=== PATIENT | female | born 1985 | race Caucasian/White ===

== ENCOUNTER 2023-10-30 17:52 | Inpatient (IN) | payer OTHER ==
[2023-10-30 18:47] VITALS: BMI 34.7
[2023-10-30] MEDS ORDERED: IBUPROFEN 400 MG TABLET (FP) PO PRN (19:12)
[2023-10-30] MEDS ORDERED: POLYETHYLENE GLYCOL (HEALTHYLAX) 3350 17 GM PACKET PO PRN (19:12)
[2023-10-30] MEDS ORDERED: chlordiazePOXIDE HCL 25 MG CAPSULE PO PRN (19:12)
[2023-10-30] MEDS ORDERED: LOPERAMIDE HCL 2 MG CAPSULE PO PRN (19:12)
[2023-10-30] MEDS ORDERED: NALOXONE HCL (KLOXXADO) 8 MG SPRAY NS PRN (19:12)
[2023-10-30] MEDS ORDERED: BENZONATATE 200 MG CAPSULE PO PRN (19:12)
[2023-10-30] MEDS ORDERED: NALOXONE HCL 0.4 MG/ML VIAL IM PRN (19:12)
[2023-10-30] MEDS ORDERED: BENZOCAINE/MENTHOL (CHLORASEPTIC ) LOZENGE MM PRN (19:12)
[2023-10-30] MEDS ORDERED: IBUPROFEN 600 MG TABLET (FP) PO PRN (19:12)
[2023-10-30] MEDS ORDERED: ACETAMINOPHEN 325 MG TABLET (FP) PO PRN (19:12)
[2023-10-30] MEDS ORDERED: guaiFENesin 600 MG TABLET.ER (FP) PO PRN (19:12)
[2023-10-30] MEDS ORDERED: MAG HYDROX/AL HYDROX/SIMETH 30 ML UNIT-DOSE CUP PO PRN (19:12)
[2023-10-30] MEDS ORDERED: BISMUTH SUBSALICYLATE 524 MG/30 ML PO PRN (19:12)
[2023-10-30] MEDS ORDERED: MAGNESIUM HYDROX 2400MG/30ML ORAL SUSPENSION 30 ML CUP PO PRN (19:12)
[2023-10-30] MEDS ORDERED: ONDANSETRON *ODT* 4 MG TABLET ONE (20:02)
[2023-10-30] MEDS: ONDANSETRON *ODT* 4 MG TABLET SL PRN (20:04)
[2023-10-30] MEDS: chlordiazePOXIDE HCL 25 MG CAPSULE PO SCH (22:21)
[2023-10-30] MEDS: hydrOXYzine PAMOATE 25 MG CAPSULE (FP) PO PRN (22:22)
[2023-10-30] MEDS: MELATONIN 5 MG TABLETS PO SCH (22:22)
[2023-10-30] MEDS: THIAMINE 100 MG TABLET PO SCH (22:22)
[2023-10-30] MEDS: METHOCARBAMOL 500 MG TABLET PO PRN (22:22)
[2023-10-31] MEDS: DICYCLOMINE HCL 10 MG CAPSULE PO PRN (00:55)
[2023-10-31] MEDS: PRENATAL VITAMINS W/ FOLIC ACID TABLET (FP) PO SCH (10:05)
[2023-10-31] MEDS: PANTOPRAZOLE 20 MG TABLET PO SCH (10:05)
[2023-10-31] MEDS: TRIMETHOBENZAMIDE HCL 200MG/2ML INJ IM ONE (10:50)
[2023-10-31] MEDS: FLUoxetine HCL 20 MG CAPSULE PO SCH (11:56)
[2023-10-31] MEDS: QUEtiapine FUMARATE 100 MG TABLET (FP) PO SCH (11:56)
[2023-10-31 12:26] LABS: HEMATOCRIT 33.2 % (32.4-45.2); MCH 32.4 pg (25.7-33.7); MCHC 33.2 g/dl (32.0-36.0); MEAN CELL VOLUME 97.8 fl (80-96); MEAN PLT VOLUME 8.4 fl (7.5-11.1); PLATELET COUNT 78 10^3/uL (134-434); RBC 3.39 M/mm3 (3.60-5.2); WHITE BLOOD COUNT 3.4 K/mm3 (4.0-10.0)
[2023-10-31 12:53] LABS: CHLORIDE 98 mmol/L (98-107); SODIUM 137 mmol/L (136-145)
[2023-10-31 13:03] LABS: BILIRUBIN,TOTAL 2.1 mg/dL (0.2-1); BLOOD UREA NITROGEN 3.7 mg/dL (7-18)
[2023-10-31 13:04] LABS: ALBUMIN 3.2 g/dl (3.4-5.0); ALK PHOS 220 U/L (45-117); CALCIUM 8.1 mg/dL (8.5-10.1); CO2 30 mmol/L (21-32); CREATININE 0.6 mg/dL (0.55-1.3); GLUCOSE,RANDOM 78 mg/dL (74-106); SGPT/ALT 158 U/L (13-61); TOT PROT 6.7 g/dl (6.4-8.2)
[2023-10-31 13:06] LABS: SGOT/AST 328 U/L (15-37)
[2023-10-31 13:12] LABS: ANION GAP 9 mmol/L (4-13); POTASSIUM 2.8 mmol/L (3.5-5.1)
[2023-10-31] MEDS: GABAPENTIN 100 MG CAPSULE PO SCH (13:23)
[2023-10-31 14:02] LABS: HIV INTERPRETATION NEGATIVE (NEGATIVE)
[2023-10-31] MEDS: POTASSIUM CHLORIDE ORAL LIQUID 20 MEQ/15 ML PO ONE (15:10)
[2023-11-01] MEDS: chlordiazePOXIDE HCL 25 MG CAPSULE PO SCH (05:39)
[2023-11-01 15:12] LABS: POTASSIUM 2.8 mmol/L (3.5-5.1)
[2023-11-02] MEDS ORDERED: chlordiazePOXIDE HCL 10 MG CAPSULE PO PRN
[2023-11-02] MEDS: chlordiazePOXIDE HCL 10 MG CAPSULE PO SCH (05:47)
[2023-11-02] MEDS ORDERED: LORazepam 1 MG TABLET PO PRN (09:03)
[2023-11-02] MEDS: LORazepam 1 MG TABLET PO SCH (10:17)
[2023-11-02] MEDS ORDERED: NALTREXONE HCL 50 MG TABLET PO SCH (15:30)
[2023-11-02] MEDS: NALTREXONE HCL 50 MG TABLET PO SCH (17:25)
[2023-11-02] MEDS: POTASSIUM CHLORIDE ORAL LIQUID 20 MEQ/15 ML PO SCH (17:54)
[2023-11-03] MEDS ORDERED: chlordiazePOXIDE HCL 10 MG CAPSULE PO SCH (05:00)
[2023-11-03] MEDS: LORazepam 0.5 MG TABLET PO SCH (05:04)
[2023-11-03 07:33] VITALS: RESP 16
[2023-11-03 09:53] VITALS: BP 142/86; PULSE 65; TEMP 97.6
[2023-11-04] MEDS ORDERED: chlordiazePOXIDE HCL 10 MG CAPSULE PO ONE (05:00)
[2023-11-04] MEDS ORDERED: LORazepam 0.5 MG TABLET PO ONE (05:00)
== END 2023-11-03 13:07 | disposition home or self-care (01) | DRG 775 ==
LOC: YASAS 17:52 → Y6N 20:16
PROVIDERS: ADMIT Allergy & Immunology; ATTEND Surgery
PROC: HZ2ZZZZ Detoxification Services for Substance Abuse Treatment (ICD-10-PCS; principal; 2023-10-30)
DX: F10.230 Alcohol dependence with withdrawal, uncomplicated (principal); F12.20 Cannabis dependence, uncomplicated; F17.210 Nicotine dependence, cigarettes, uncomplicated; F25.0 Schizoaffective disorder, bipolar type; F41.9 Anxiety disorder, unspecified; F31.9 Bipolar disorder, unspecified; K21.9 Gastro-esophageal reflux disease without esophagitis; E87.6 Hypokalemia; E87.8 Other disorders of electrolyte and fluid balance, not elsewhere classified; D64.9 Anemia, unspecified; D68.311 Acquired hemophilia; J45.909 Unspecified asthma, uncomplicated; D68.00 Von Willebrand disease, unspecified; Z98.84 Bariatric surgery status; Z88.6 Allergy status to analgesic agent
CPT/HCPCS: 36415; 80053; 80305; 80307; 81025; 84132; 85027; 86780; 86803; 87389; 93005; 93010; Q0162

== ENCOUNTER 2023-11-01 17:50 | Emergency (ER) | payer OTHER ==
[2023-11-01] MEDS ORDERED: LIDOCAINE 4% PATCH TP ONE (18:36)
[2023-11-01] MEDS ORDERED: METHOCARBAMOL 500 MG TABLET ONE (18:36)
[2023-11-01 18:38] LABS: BASO % 0.6 % (0-2.0); EOS % 2.1 % (0-4.5); HEMATOCRIT 33.2 % (32.4-45.2); HEMOGLOBIN 11.3 GM/dL (10.7-15.3); LYMPH % 21.5 % (8-40); MCH 33.1 pg (25.7-33.7); MCHC 33.9 g/dl (32.0-36.0); MEAN CELL VOLUME 97.6 fl (80-96); MEAN PLT VOLUME 9.1 fl (7.5-11.1); MONO % 7.9 % (3.8-10.2); NEUT % 67.9 % (42.8-82.8); PLATELET COUNT 91 10^3/uL (134-434); RBC 3.41 M/mm3 (3.60-5.2); RDW 22.7 % (11.6-15.6); WHITE BLOOD COUNT 4.5 K/mm3 (4.0-10.0)
[2023-11-01 18:39] VITALS: BP 105/58; PULSE 75; RESP 19; TEMP 97.9; BMI 34.7
[2023-11-01] MEDS: LIDOCAINE 5% TOPICAL PATCH TP ONE (18:47)
[2023-11-01] MEDS: METHOCARBAMOL 500 MG TABLET PO ONE (18:47)
[2023-11-01 18:57] LABS: ANISOCYTOSIS 3+; MACROCYTOSIS 0; OVALOCYTE 1+
[2023-11-01 19:03] LABS: POTASSIUM 3.1 mmol/L (3.5-5.1)
[2023-11-01] MEDS: KCL 10 MEQ IVPB 10 MEQ/100 ML INFUS.BAG IVPB SCH (19:03)
[2023-11-01 19:06] LABS: ALBUMIN 3.5 g/dl (3.4-5.0); BLOOD UREA NITROGEN 6.3 mg/dL (7-18); CALCIUM 8.5 mg/dL (8.5-10.1); MAGNESIUM 1.6 mg/dL (1.8-2.4)
[2023-11-01 19:09] LABS: CREATININE 0.6 mg/dL (0.55-1.3)
[2023-11-01 19:11] LABS: BILIRUBIN,TOTAL 0.9 mg/dL (0.2-1); TOT PROT 7.1 g/dl (6.4-8.2)
[2023-11-01] MEDS ORDERED: POTASSIUM CHLORIDE TABS 20 MEQ TABLET.ER (FP) PO ONE (19:30)
[2023-11-01] MEDS: POTASSIUM CHLORIDE TABS 20 MEQ TABLET.ER (FP) PO ONE (19:36)
[2023-11-01] MEDS ORDERED: MAGNESIUM SULFATE IN WATER 2 GM/50 ML IVPB IVPB ONE (19:42)
[2023-11-01] MEDS ORDERED: KCL 10 MEQ IVPB 10 MEQ/100 ML INFUS.BAG IVPB ONE (20:04)
[2023-11-01] MEDS: MAGNESIUM SULFATE IN WATER 2 GM/50 ML IVPB IVPB ONE (20:05)
== END 2023-11-01 22:01 | disposition home or self-care (01) ==
LOC: JER 17:50
PROC: 3E033GC Introduction of Other Therapeutic Substance into Peripheral Vein, Percutaneous Approach (ICD-10-PCS; principal; 2023-11-01)
DX: E87.6 Hypokalemia (principal); G89.29 Other chronic pain; M54.50 Low back pain, unspecified; E87.8 Other disorders of electrolyte and fluid balance, not elsewhere classified; E83.42 Hypomagnesemia
CPT/HCPCS: 36415; 80053; 83735; 85025; 93005; 93010; 96365; 99284-25

== ENCOUNTER 2024-03-09 22:04 | Inpatient (IN) | payer OTHER ==
[2024-03-10 01:21] VITALS: BMI 37.8
[2024-03-10] MEDS: TRIMETHOBENZAMIDE HCL 200MG/2ML INJ IM ONE (02:14)
[2024-03-10] MEDS ORDERED: NALOXONE (NARCAN) HCL 4 MG/0.1 ML SPRAY NS PRN (02:40)
[2024-03-10] MEDS ORDERED: MAGNESIUM HYDROX 2400MG/30ML ORAL SUSPENSION 30 ML CUP PO PRN (02:40)
[2024-03-10] MEDS ORDERED: guaiFENesin 600 MG TABLET.ER (FP) PO PRN (02:40)
[2024-03-10] MEDS ORDERED: POLYETHYLENE GLYCOL (HEALTHYLAX) 3350 17 GM PACKET PO PRN (02:40)
[2024-03-10] MEDS ORDERED: MAG HYDROX/AL HYDROX/SIMETH 30 ML UNIT-DOSE CUP PO PRN (02:40)
[2024-03-10] MEDS ORDERED: LOPERAMIDE HCL 2 MG CAPSULE PO PRN (02:40)
[2024-03-10] MEDS ORDERED: BENZONATATE 200 MG CAPSULE PO PRN (02:40)
[2024-03-10] MEDS ORDERED: NALOXONE HCL 0.4 MG/ML VIAL IM PRN (02:40)
[2024-03-10] MEDS ORDERED: DICYCLOMINE HCL 10 MG CAPSULE PO PRN (02:40)
[2024-03-10] MEDS ORDERED: BISMUTH SUBSALICYLATE 524 MG/30 ML PO PRN (02:40)
[2024-03-10] MEDS ORDERED: BENZOCAINE/MENTHOL (CHLORASEPTIC ) LOZENGE MM PRN (02:40)
[2024-03-10] MEDS: LORazepam 1 MG TABLET PO PRN (03:00)
[2024-03-10] MEDS: hydrOXYzine PAMOATE 25 MG CAPSULE (FP) PO PRN (03:00)
[2024-03-10] MEDS ORDERED: LORazepam 2 MG TABLET ONE ×2 (05:57→10:09)
[2024-03-10] MEDS: LORazepam 2 MG TABLET PO SCH (05:58)
[2024-03-10] MEDS ORDERED: PRENATAL VITAMINS W/ FOLIC ACID TABLET (FP) PO ONE (10:09)
[2024-03-10] MEDS ORDERED: ACETAMINOPHEN 325 MG TABLET (FP) ONE (10:09)
[2024-03-10] MEDS: ACETAMINOPHEN 325 MG TABLET (FP) PO PRN (10:11)
[2024-03-10] MEDS: PRENATAL VITAMINS W/ FOLIC ACID TABLET (FP) PO SCH (10:11)
[2024-03-10] MEDS: METHOCARBAMOL 500 MG TABLET PO PRN (21:05)
[2024-03-10] MEDS: ONDANSETRON *ODT* 4 MG TABLET SL PRN (21:07)
[2024-03-10] MEDS: THIAMINE 100 MG TABLET PO SCH (22:22)
[2024-03-10] MEDS: MELATONIN 5 MG TABLETS PO SCH (22:22)
[2024-03-10] MEDS: FAMOTIDINE 20 MG TABLET PO SCH (22:24)
[2024-03-11] MEDS: LORazepam 1 MG TABLET PO SCH (05:28)
[2024-03-11 11:22] LABS: HEMATOCRIT 33.2 % (32.4-45.2); HEMOGLOBIN 11.2 GM/dL (10.7-15.3); MCH 30.1 pg (25.7-33.7); MCHC 33.6 g/dl (32.0-36.0); MEAN CELL VOLUME 89.5 fl (80-96); MEAN PLT VOLUME 9.6 fl (7.5-11.1); PLATELET COUNT 115 10^3/uL (134-434); RDW 26.8 % (11.6-15.6); WHITE BLOOD COUNT 3.7 K/mm3 (4.0-10.0)
[2024-03-11 11:41] LABS: POTASSIUM 3.2 mmol/L (3.5-5.1)
[2024-03-11 11:44] LABS: ALBUMIN 2.5 g/dl (3.4-5.0); BLOOD UREA NITROGEN 11.9 mg/dL (7-18)
[2024-03-11 11:48] LABS: CREATININE 0.5 mg/dL (0.55-1.3)
[2024-03-11 11:49] LABS: BILIRUBIN,TOTAL 1.6 mg/dL (0.2-1); TOT PROT 5.6 g/dl (6.4-8.2)
[2024-03-11] MEDS: GABAPENTIN 100 MG CAPSULE PO SCH (13:43)
[2024-03-11] MEDS: POTASSIUM CHLORIDE ORAL LIQUID 20 MEQ/15 ML PO SCH (13:45)
[2024-03-11] MEDS: CALCIUM (OYSTER SHELL) 500 MG TABLET (FP) PO SCH (17:43)
[2024-03-11] MEDS: QUEtiapine FUMARATE 200 MG TABLET PO SCH (22:29)
[2024-03-12] MEDS ORDERED: LORazepam 0.5 MG TABLET PO PRN
[2024-03-12] MEDS: LORazepam 0.5 MG TABLET PO SCH (05:28)
[2024-03-12] MEDS: FLUoxetine HCL 20 MG CAPSULE PO SCH (10:17)
[2024-03-12] MEDS: QUEtiapine FUMARATE 50 MG TABLET PO ONE (11:04)
[2024-03-12] MEDS: MAGNESIUM OXIDE 400 MG TABLET (FP) PO ONE (11:14)
[2024-03-12 11:42] LABS: MAGNESIUM 1.7 mg/dL (1.8-2.4)
[2024-03-12] MEDS: GABAPENTIN 300 MG CAPSULE PO SCH (13:28)
[2024-03-12] MEDS: traZODone HCL 100 MG TABLET (FP) PO SCH (22:53)
[2024-03-13] MEDS ORDERED: LORazepam 0.5 MG TABLET PO ONE (05:00)
[2024-03-13] MEDS: FLUoxetine HCL 20 MG CAPSULE PO SCH (10:08)
[2024-03-13] MEDS: QUEtiapine FUMARATE 100 MG TABLET (FP) PO SCH (10:08)
[2024-03-13] MEDS: NALTREXONE HCL 50 MG TABLET PO ONE (11:43)
[2024-03-14] MEDS: LORazepam 0.5 MG TABLET PO ONE (05:39)
[2024-03-14] MEDS: NALTREXONE MICROSPHERES (VIVITROL) 380 MG DISP.SYRIN IM ONE (08:48)
[2024-03-14 09:30] VITALS: BP 108/64; PULSE 87; RESP 20; TEMP 97.3
== END 2024-03-14 12:37 | disposition home or self-care (01) | DRG 775 ==
LOC: YASAS 22:04 → Y3N 03-10 12:37
PROVIDERS: ADMIT Allergy & Immunology; ATTEND Surgery
PROC: HZ2ZZZZ Detoxification Services for Substance Abuse Treatment (ICD-10-PCS; principal; 2024-03-10)
DX: F10.230 Alcohol dependence with withdrawal, uncomplicated (principal); F12.20 Cannabis dependence, uncomplicated; F17.210 Nicotine dependence, cigarettes, uncomplicated; F25.0 Schizoaffective disorder, bipolar type; F19.24 Other psychoactive substance dependence with psychoactive substance-induced mood disorder; F41.9 Anxiety disorder, unspecified; F32.A Depression, unspecified; E87.6 Hypokalemia; E83.51 Hypocalcemia; G47.00 Insomnia, unspecified; J45.909 Unspecified asthma, uncomplicated; M54.50 Low back pain, unspecified; G89.29 Other chronic pain; Z86.2 Personal history of diseases of the blood and blood-forming organs and certain disorders involving the immune mechanism
CPT/HCPCS: 36415; 80053; 80076; 80305; 80307; 81025; 83735; 84132; 85027; 86780; 93005; 93010; J2315; Q0162

== ENCOUNTER 2024-05-13 13:42 | Inpatient (IN) | payer OTHER ==
[2024-05-13 14:24] VITALS: BMI 37.1
[2024-05-13] MEDS ORDERED: MAGNESIUM HYDROX 2400MG/30ML ORAL SUSPENSION 30 ML CUP PO PRN (15:37)
[2024-05-13] MEDS ORDERED: ONDANSETRON *ODT* 4 MG TABLET SL PRN (15:37)
[2024-05-13] MEDS ORDERED: LOPERAMIDE HCL 2 MG CAPSULE PO PRN (15:37)
[2024-05-13] MEDS ORDERED: BENZOCAINE/MENTHOL (CHLORASEPTIC ) LOZENGE MM PRN (15:37)
[2024-05-13] MEDS ORDERED: NALOXONE (NARCAN) HCL 4 MG/0.1 ML SPRAY NS PRN (15:37)
[2024-05-13] MEDS ORDERED: BENZONATATE 200 MG CAPSULE PO PRN (15:37)
[2024-05-13] MEDS ORDERED: DICYCLOMINE HCL 10 MG CAPSULE PO PRN (15:37)
[2024-05-13] MEDS ORDERED: ACETAMINOPHEN 325 MG TABLET (FP) PO PRN (15:37)
[2024-05-13] MEDS ORDERED: POLYETHYLENE GLYCOL (HEALTHYLAX) 3350 17 GM PACKET PO PRN (15:37)
[2024-05-13] MEDS ORDERED: chlordiazePOXIDE HCL 25 MG CAPSULE ONE (16:01)
[2024-05-13] MEDS: chlordiazePOXIDE HCL 25 MG CAPSULE PO SCH (16:04)
[2024-05-13] MEDS: chlordiazePOXIDE HCL 25 MG CAPSULE PO PRN (18:22)
[2024-05-13] MEDS: hydrOXYzine PAMOATE 25 MG CAPSULE (FP) PO PRN (18:22)
[2024-05-13] MEDS: METHOCARBAMOL 500 MG TABLET PO PRN (18:24)
[2024-05-13] MEDS: THIAMINE 100 MG TABLET PO SCH (22:43)
[2024-05-13] MEDS: MELATONIN 5 MG TABLETS PO SCH (22:43)
[2024-05-14] MEDS: GABAPENTIN 300 MG CAPSULE PO SCH (10:16)
[2024-05-14] MEDS: FAMOTIDINE 20 MG TABLET PO SCH (10:16)
[2024-05-14] MEDS: NALTREXONE HCL 50 MG TABLET PO SCH (10:16)
[2024-05-14] MEDS: PRENATAL VITAMINS W/ FOLIC ACID TABLET (FP) PO SCH (10:17)
[2024-05-14] MEDS: FLUoxetine HCL 20 MG CAPSULE PO SCH (12:51)
[2024-05-14 13:50] LABS: HEMATOCRIT 37.1 % (32.4-45.2); HEMOGLOBIN 11.8 GM/dL (10.7-15.3); MCH 27.4 pg (25.7-33.7); MCHC 31.8 g/dl (32.0-36.0); MEAN CELL VOLUME 86.1 fl (80-96); MEAN PLT VOLUME 8.8 fl (7.5-11.1); PLATELET COUNT 268 10^3/uL (134-434); RBC 4.31 M/mm3 (3.60-5.2); RDW 20.1 % (11.6-15.6); WHITE BLOOD COUNT 8.9 K/mm3 (4.0-10.0)
[2024-05-14 14:05] LABS: CHLORIDE 98 mmol/L (98-107); SODIUM 138 mmol/L (136-145)
[2024-05-14 14:12] LABS: POTASSIUM 2.9 mmol/L (3.5-5.1)
[2024-05-14 14:16] LABS: CALCIUM 8.4 mg/dL (8.5-10.1)
[2024-05-14 14:17] LABS: ALBUMIN 3.8 g/dl (3.4-5.0); ANION GAP 14 mmol/L (4-13); BLOOD UREA NITROGEN 5.7 mg/dL (7-18); CO2 27 mmol/L (21-32)
[2024-05-14 14:19] LABS: GLUCOSE,RANDOM 99 mg/dL (74-106)
[2024-05-14 14:20] LABS: CREATININE 0.7 mg/dL (0.55-1.3)
[2024-05-14 14:21] LABS: BILIRUBIN,TOTAL 0.9 mg/dL (0.2-1)
[2024-05-14 14:22] LABS: TOT PROT 7.6 g/dl (6.4-8.2)
[2024-05-14 14:24] LABS: ALK PHOS 191 U/L (45-117); SGOT/AST 240 U/L (15-37)
[2024-05-14 14:37] LABS: SGPT/ALT 102 U/L (13-61)
[2024-05-14] MEDS: POTASSIUM CHLORIDE ORAL LIQUID 20 MEQ/15 ML PO ONE (14:51)
[2024-05-14 15:20] LABS: HIV INTERPRETATION NEGATIVE (NEGATIVE)
[2024-05-14] MEDS: POTASSIUM CHLORIDE ORAL LIQUID 20 MEQ/15 ML PO SCH (22:27)
[2024-05-14] MEDS: QUEtiapine FUMARATE 200 MG TABLET PO SCH (22:28)
[2024-05-14] MEDS: guaiFENesin 600 MG TABLET.ER (FP) PO PRN (22:34)
[2024-05-15] MEDS: chlordiazePOXIDE HCL 25 MG CAPSULE PO SCH (05:58)
[2024-05-15] MEDS: POTASSIUM CHLORIDE ORAL LIQUID 20 MEQ/15 ML PO ONE (17:29)
[2024-05-15] MEDS: MAG HYDROX/AL HYDROX/SIMETH 30 ML UNIT-DOSE CUP PO PRN (17:32)
[2024-05-16] MEDS ORDERED: chlordiazePOXIDE HCL 10 MG CAPSULE PO PRN
[2024-05-16] MEDS: chlordiazePOXIDE HCL 10 MG CAPSULE PO SCH (06:15)
[2024-05-16] MEDS ORDERED: LORazepam 1 MG TABLET PO PRN (10:56)
[2024-05-16] MEDS: LORazepam 1 MG TABLET PO SCH (17:40)
[2024-05-16] MEDS: SUVOREXANT 10 MG TABLET PO PRN (22:17)
[2024-05-17] MEDS ORDERED: chlordiazePOXIDE HCL 10 MG CAPSULE PO SCH (05:00)
[2024-05-17] MEDS: LORazepam 0.5 MG TABLET PO SCH (05:49)
[2024-05-17 09:10] VITALS: BP 115/70; PULSE 62; RESP 18; TEMP 97.7
[2024-05-17] MEDS: NALOXONE (NYS OPIOID OVERDOSE PROGRAM) 4 MG/0.1 ML SPRAY NS PRN (10:32)
[2024-05-18] MEDS ORDERED: chlordiazePOXIDE HCL 10 MG CAPSULE PO ONE (05:00)
[2024-05-18] MEDS ORDERED: LORazepam 0.5 MG TABLET PO ONE (05:00)
== END 2024-05-17 10:42 | disposition home or self-care (01) | DRG 775 ==
LOC: YASAS 13:42 → Y6N 16:47
PROVIDERS: ADMIT Allergy & Immunology; ATTEND Surgery
PROC: HZ2ZZZZ Detoxification Services for Substance Abuse Treatment (ICD-10-PCS; principal; 2024-05-13)
DX: F10.230 Alcohol dependence with withdrawal, uncomplicated (principal); F12.20 Cannabis dependence, uncomplicated; F17.210 Nicotine dependence, cigarettes, uncomplicated; F10.280 Alcohol dependence with alcohol-induced anxiety disorder; F10.282 Alcohol dependence with alcohol-induced sleep disorder; E87.6 Hypokalemia; K21.9 Gastro-esophageal reflux disease without esophagitis; J45.20 Mild intermittent asthma, uncomplicated; M54.50 Low back pain, unspecified; G89.29 Other chronic pain; R74.01 Elevation of levels of liver transaminase levels; Z86.2 Personal history of diseases of the blood and blood-forming organs and certain disorders involving the immune mechanism
CPT/HCPCS: 36415; 80053; 80305; 80307; 81025; 84132; 84450; 85027; 86780; 86803; 87389